=== PATIENT | male | born 2000 | race Caucasian/White ===

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

== ENCOUNTER 2024-06-08 18:47 | Emergency (ER) | payer BC ==
[2024-06-08 18:56] VITALS: PULSE 75; RESP 20; TEMP 98.1
--- NOTE | 2024-06-08 19:18 | ERPHSYRPT ---
- History of Present Illness Time Seen by Provider: 06/08/24 18:51 Source: patient Exam Limitations: no limitations Patient Subjective Stated Complaint: Pt states "I shut my finger in the car door." Triage Nursing Assessment: PT presented alert oriented X 3, skin wpd. Pt ambulates with an upright steady gait, able to speak in clear full sentencs. PT 5th digit of left hand tender, swolen red Physician History: 23 years old right-handed dominant male presented in the ER with complaint of left fifth digit tip injury after he accidentally smashed in the car door prior to arrival. Patient reports moderate intensity sharp pain with palpation and movements. No nail injury. No numbness of the tip. Patient has contusions/bruises at the distal pulp left fifth digit. Tenderness to palpation. Restricted DIP movement. Intact nail. X-ray shows fracture distal phalanx. Placed in finger splint. Outpatient orthopedics follow-up recommended. Allergies/Adverse Reactions: No Known Drug Allergies Allergy (Verified 12/09/20 00:31) Hx Tetanus, Diphtheria Vaccination/Date Given: No Hx Influenza Vaccination/Date Given: No Hx Pneumococcal Vaccination/Date Given: No Immunizations Up to Date: No Travel Risk - International Travel Have you traveled outside of the country in past 3 weeks: No - Emerging Infectious Disease Are you exhibiting symptoms associated with any current EIDs: No - Review of Systems Constitutional: No Symptoms Ears, Nose, & Throat: No Symptoms Respiratory: No Symptoms Cardiac: No Symptoms Abdominal/Gastrointestinal: No Symptoms Musculoskeletal: Injury Skin: No Symptoms Neurological: No Symptoms Hematologic/Lymphatic: No Symptoms - Past Medical History Pertinent Past Medical History: Yes Musculoskeletal History: Fractures Psycho-Social History: Depression Other Medical History: broken right arm - Past Surgical History Past Surgical History: No - Social History Smoking Status: Former smoker Exposure to second hand smoke: Yes Drug Use: none Patient Lives Alone: No - Social Determinants of Health Will the patient participate in the screening: Yes Do you worry about a steady place to live?: No Do you have any problems with any of the following?: No known problems In the past 12 months,have you had to go without utilities?: No Transportation Issues: No Has anyone in your support network made you feel unsafe?: No Have you or anyone in your house had to go without enough: No - Nursing Vital Signs Nursing Vital Signs: Initial Vital Signs Temperature 98.1 F 06/08/24 18:51 Pulse Rate 75 06/08/24 18:51 Respiratory Rate 20 06/08/24 18:51 Blood Pressure 128/88 06/08/24 18:51 O2 Sat by Pulse Oximetry 100 06/08/24 18:51 Pain Scale Pain Intensity 7 - Physical Exam General Appearance: no apparent distress Eye Exam: PERRL/EOMI Neck Exam: normal inspection, full range of motion Respiratory Exam: normal breath sounds, lungs clear Cardiovascular Exam: regular rate/rhythm, normal heart sounds Extremity Exam: swelling, tenderness (Left fifth digit pulp contusion. Tenderness. Restricted range of motion at the DIP.) Neurologic Exam: alert, oriented x 3, cooperative Skin Exam: normal color SpO2 Interpretation: normal SpO2: 100 O2 Delivery: Room Air Ordered Tests: Active Orders 24 hr Category Date Time Status FINGER(S) Stat Exams 06/08/24 19:05 Taken Medication Summary Discontinued Medications Generic Name Dose Route Start Last Admin Trade Name Freq PRN Reason Stop Dose Admin Ketorolac Tromethamine 30 mg 06/08/24 19:05 06/08/24 19:31 Ketorolac Tromethamine 30 Mg/Ml Inj IM 06/08/24 19:06 30 mg STAT ONE Administration Ketorolac Tromethamine Confirm 06/08/24 19:20 Ketorolac Tromethamine 30 Mg/Ml Inj Administered 06/08/24 19:21 Dose 30 mg .ROUTE .AirXpanders-MED ONE - Progress Progress Note: 06/08/24 19:56 23 years old right-handed dominant male presented in the ER with complaint of left fifth digit tip injury after he accidentally smashed in the car door prior to arrival. Patient reports moderate intensity sharp pain with palpation and movements. No nail injury. No numbness of the tip. Patient has contusions/bruises at the distal pulp left fifth digit. Tenderness to palpation. Restricted DIP movement. Intact nail. X-ray shows fracture distal phalanx reviewed by me, official report is pending. Placed in finger splint. Outpatient orthopedics follow-up recommended. 06/08/24 19:57 Medical Desision Making - Diagnostic Testing Diagnostic test were ordered, analyzed, and reviewed by me: Yes Radiological Interpretation: Interpreted by me, Reviewed by me - Risk of complications The pt has a mod risk of morbidity or mortality based on: Need for prescription drug management - Departure Departure Disposition: Home Clinical Impression: Finger fracture, left Condition: Stable Critical Care Time: No Referrals: DANTE FELICIANO MD [Primary Care Provider] - Follow up with PCP 1 day CHAPARRO DURHAM MD [ACTIVE STAFF] - Follow up/PCP as directed (Called in 1 to 2 days for appointment for reevaluation) Instructions: Finger Fracture (DC) Additional Instructions: Take Tylenol/ibuprofen as needed. Follow-up with orthopedics for reevaluation. Return to ER for any worsening. Pain, deformity etc. Prescriptions: Ibuprofen 600 mg PO Q6HPRN PRN 10 Days #20 tablet PRN Reason: Pain
[2024-06-08] MEDS ORDERED: TORAdol 30 mg Injection ONE (19:20)
[2024-06-08] MEDS: TORAdol 30 mg Injection IM ONE (19:31)
[2024-06-08 19:58] VITALS: O2SAT 100
--- NOTE | 2024-06-08 19:59 | XRAY ---
Indication: Crush injury. Comparison: None 3 view left 5th finger demonstrates mildly angulated fracture shaft distal phalanx with soft tissue swelling. No other bony, articular, or soft tissue abnormalities.
[2024-06-08 20:03] VITALS: BP 118/74
== END 2024-06-08 20:08 | disposition home or self-care (01) ==
LOC: ED 18:47
DX: S62.637A Displaced fracture of distal phalanx of left little finger, initial encounter for closed fracture (principal); W23.0XXA Caught, crushed, jammed, or pinched between moving objects, initial encounter
CPT/HCPCS: 73140; 96372; 99283; J1885